=== PATIENT | female | born 1965 ===

== ENCOUNTER 2022-11-18 10:06 | Outpatient (CLI) | payer BC, OTHER, SELFPAY ==
--- NOTE | ~2022-11-18 | MR_ITS ---
EXAMINATION: MR brain/brain stem wo con DATE: 11/18/2022 10:53 INDICATION: New daily persistent headaches. TECHNIQUE: Magnetic resonance imaging (MRI) of the brain and brainstem was performed without intraven ous contrast. COMPARISON: None. FINDINGS: There is a focus of increased T2-weighted signal intensity in the left parietal deep white matter, which is normal as an isolated finding. There is no intracranial hemorrhage, acute infarction , or abnormal intracranial mass lesion. The ventricles are normal in size. There is a left mastoid ef fusion. The orbits are normal. There is a mucous retention cyst right maxillary sinus. IMPRESSION: 1. Normal aging brain. Reviewed, dictated and finalized at location L. IMPRESSION: 1. Normal aging brain.
== END 2022-11-18 10:07 ==
PROVIDERS: PCP Internal Medicine; Visit Provider Internal Medicine
DX: R51.9 Headache, unspecified (principal)
CPT/HCPCS: 70551